=== PATIENT | male | born 1985 | race Caucasian/White ===

== ENCOUNTER → 2020-01-09 | Outpatient (CLI) | payer OTHER ==
[~2020-01-09] MED LIST: Cyclobenzaprine5 MG PO; DEXGUASY PO; DOXY100 PO; IBUP800 PO; Norco 5-325 Ta1 EACH PO
[2020-01-11 08:08] LABS: HBSAG SCREEN Negative (Negative); HEP A AB, IGM Negative (Negative); HEP B CORE AB, IGM Negative (Negative); HEP C VIRUS AB <0.1 (0.0-0.9); HIV SCREEN 4TH GENERATION WRFX Non Reactive (Non Reactive)
[2020-01-11 23:08] LABS: CHLAMYDIA TRACHOMATIS, NAA Negative (Negative); NEISSERIA GONORRHOEAE, NAA Negative (Negative)
== END | disposition home or self-care (01) ==
LOC: LAB EV 14:52 → LAB SHORT 14:52
PROVIDERS: General Practice
DX: Z72.51 High risk heterosexual behavior (principal)
CPT/HCPCS: 80074; 86592; 86694; 86695; 86696; 87389; 87491; 87591

== ENCOUNTER 2020-07-06 06:50 | Day surgery (SDC) | payer OTHER, SELFPAY ==
[~2020-07-06] VITALS: Ht 177.8 cm; Wt 98.5 kg
--- NOTE | 2020-07-06 08:21 | NUR ---
07/06/20 0821 Angella Sweeney 5CC OF LIDOCAINE 2% W/EPI 1:100,000 MIXED WITH 5CC NACL TO CONSTITUTE LIDOCAINE 1% W/EPI 1:200,[address] HAYS INTO OPSITE PRIOR TO CASE. PLEDGETTES SOAKED IN DYED EPI FOR PACKING IN TO EAR CANAL
--- NOTE | 2020-07-06 12:48 | NUR ---
07/06/20 1248 Taisha Reardon RECIEVED REPORT FROM JHONATHAN LI. PT USED URINAL UPON ARRIVAL TO SDU. 4X4'S IN EAR SHIELD REPLACED, MINIMAL AMOUNT OF RED BLOOD IN DRESSING. PT C/O NAUSEA AND RATES LEFT EAR PAIN 5/10. PT MEDICATED WITH IV ZOFRAN AND IV FENTANYL AT THIS TIME. PT DROWSY, SNORING AT THIS TIME. VSS AND TOLERATING PO FLUID INTAKE. WILL CONTINUE TO MONITER
--- NOTE | 2020-07-06 16:08 | NUR ---
07/06/20 1608 Shiro,Carol PT. RETURNED FROM HEMATOMA EVAC. PRESSURE DRESSING TO LEFT EAR. CDI. LABETOLOL GIVEN ONCE FOR BP PER DR. PAZ PARAMETERS. FENTANYL GIVEN TOTAL OF 4 DOSES OF 25MCG. PT. STATES WANTS TO GO HOME. STILL A LITTLE SLEEPY BUT AROUSES WELL ENOUGH TO GO TO BATHROOM TO VOID. ASSISTED TO DRESS. DISCHARGE INSTRUCTIONS GIVEN TO PATIENT AND TO SO AT THE CAR. DISCHARGED WITH ALL BELONGINGS, DISCHARGE INSTRUCTIONS.
== END 2020-07-06 16:00 | disposition home or self-care (01) ==
LOC: ORSCSDS 06:50
PROVIDERS: Otolaryngology
PROC: 0NR607Z Replacement of Left Temporal Bone with Autologous Tissue Substitute, Open Approach (ICD-10-PCS; principal; 2020-07-06 07:30)
PROC: 09Q Ear, Nose, Sinus, Repair (ICD-10-PCS; principal; 2020-07-06 07:30)
DX: H71.02 Cholesteatoma of attic, left ear (principal); H69.83 Other specified disorders of Eustachian tube, bilateral; J45.909 Unspecified asthma, uncomplicated; Z87.891 Personal history of nicotine dependence
CPT/HCPCS: 88304; 88311; A9270; J0171; J0690; J1100; J2250; J2405; J2704; J3010; J7120

== ENCOUNTER 2021-03-29 06:15 | Day surgery (SDC) | payer OTHER ==
[~2021-03-29] VITALS: Ht 177.8 cm; Wt 95.5 kg
[2021-03-29] MEDS ORDERED: OXYC5 (06:52)
[2021-03-29] MEDS ORDERED: IBU800 M1 PO (06:52)
[2021-03-29] MEDS ORDERED: CIPROFLOX-DEXA7.5 ML RIGHTEAR (06:52)
[2021-03-29] MEDS ORDERED: Phenergan25 M1 PO (06:53)
--- NOTE | 2021-03-29 12:46 | NUR ---
03/29/21 1246 RAMAKRISHNA ROSARIO PT C/O PAIN IN RT EAR/HEAD/NECK-PAIN MEDS GIVEN PER DR ORDERS WITH MINIMAL CONTROL WHILE BP CONTINUED TO BE ELEVATED BOTH SYSTOLIC AND DYASTOLIC DESPITE MEDS. HR DROPED BELOW [address] PAZ CHANGED ORDER FROM LABETALOL TO HYDRALAZINE
== END 2021-03-29 16:14 | disposition home or self-care (01) ==
LOC: ORSCSDS 06:15
PROVIDERS: Otolaryngology
PROC: 0NR507Z Replacement of Right Temporal Bone with Autologous Tissue Substitute, Open Approach (ICD-10-PCS; principal; 2021-03-29 07:30)
DX: H71.01 Cholesteatoma of attic, right ear (principal); Z87.891 Personal history of nicotine dependence; J45.909 Unspecified asthma, uncomplicated
CPT/HCPCS: A9270; J0171; J0360; J1100; J1170; J1885; J2250; J2405; J2704; J3010; J7120